=== PATIENT | female | born 1965 | race Caucasian/White ===

== ENCOUNTER 2017-08-26 21:41 | Emergency (ER) | payer MEDICAID ==
[~2017-08-26] VITALS: Ht 157.5 cm; Wt 62.7 kg
[~2017-08-26 21:41] MED LIST: DESO15CR13 TP
[2017-08-26 21:55] VITALS: BP 112/87
== END 2017-08-26 23:04 | disposition home or self-care (01) ==
LOC: ER 21:42
DX: F41.9 Anxiety disorder, unspecified (principal); T43.595A Adverse effect of other antipsychotics and neuroleptics, initial encounter; F15.10 Other stimulant abuse, uncomplicated; G89.29 Other chronic pain; Z86.14 Personal history of Methicillin resistant Staphylococcus aureus infection; Y92.9 Unspecified place or not applicable
CPT/HCPCS: 93005; 99283

== ENCOUNTER 2018-05-22 11:20 | Emergency (ER) | payer MEDICAID, OTHER ==
[~2018-05-22] VITALS: Ht 165.1 cm; Wt 65.9 kg
[2018-05-22] MEDS ORDERED: ibuprofen tablet 400 MG TABLET PO ONE (12:25)
[2018-05-22 13:00] VITALS: BP 98/73
[2018-05-22] MEDS ORDERED: ibuprofen tablet 400 MG TABLET PO STA (13:14)
== END 2018-05-22 13:50 | disposition home or self-care (01) ==
LOC: ER 11:21
DX: S16.1XXA Strain of muscle, fascia and tendon at neck level, initial encounter (principal); S13.4XXA Sprain of ligaments of cervical spine, initial encounter; G89.29 Other chronic pain; F15.90 Other stimulant use, unspecified, uncomplicated; Z79.899 Other long term (current) drug therapy; V49.9XXA Car occupant (driver) (passenger) injured in unspecified traffic accident, initial encounter; Y93.89 Activity, other specified; Y92.488 Other paved roadways as the place of occurrence of the external cause; Y99.8 Other external cause status
CPT/HCPCS: 72040; 99283